=== PATIENT | female | born 1940 | race Caucasian/White ===

== ENCOUNTER → 2018-11-01 19:30 | Outpatient (REF) | payer MEDICARE, OTHER, SELFPAY ==
[2018-11-01 20:02] LABS: HEMOLYSIS < 15 (0-50); Iron 112 ug/dL (37-170)
[2018-11-01 20:13] LABS: Percent Iron Saturation 38 % (15-50); Total Iron Binding Capacity 292 ug/dL (265-497); Transferrin 234 mg/dL (206-381)
[2018-11-03 15:00] LABS: Ferritin 43.7 ng/mL (11.1-264)
== END ==
LOC: LAB 19:30
PROVIDERS: PCP Naturopath; Visit Provider Physician Assistant
DX: M13.80 Other specified arthritis, unspecified site (principal)
CPT/HCPCS: 36415; 82728; 83540; 83550